=== PATIENT | female | born 1940 | race Caucasian/White ===

== ENCOUNTER 2017-05-24 06:22 | Day surgery (SDC) | payer OTHER ==
[2017-05-18 13:56] VITALS: BMI 17.2
[2017-05-24] MEDS ORDERED: oxyCODONE HCL 10 MG SUSTAINED ACTING TABLET PO STA (06:48)
[2017-05-24] MEDS ORDERED: THROMBIN (BOVINE) 5,000 UNIT VIAL TP ONE (07:13)
[2017-05-24] MEDS ORDERED: methylPREDNISolone ACET (DEPO) 40 MG/1 ML VIAL ONE (07:13)
[2017-05-24] MEDS ORDERED: LIDOCAINE 1%/EPI 1:100000 (20 ML MULTI DOSE VIAL) ONE (07:14)
[2017-05-24] MEDS ORDERED: BUPIVACAINE HCL/PF 2.5 MG/ML - 30 ML VIAL IJ ONE ×2 (07:14→07:41)
[2017-05-24] MEDS ORDERED: BUPIVACAINE HCL/PF 0.5% (5MG/ML) 10 ML VIAL ONE (07:29)
[2017-05-24] MEDS ORDERED: ceFAZolin SODIUM 1 GM VIAL ONE (07:35)
[2017-05-24] MEDS ORDERED: ONDANSETRON 4 MG/2 ML VIAL ONE (07:35)
[2017-05-24] MEDS ORDERED: KETOROLAC TROMETHAMINE 30 MG/1 ML VIAL ONE (07:35)
[2017-05-24] MEDS ORDERED: DEXAMETHASONE SOD PHOSPHATE 4 MG/1 ML VIAL ONE (07:35)
[2017-05-24] MEDS ORDERED: PROPOFOL 20 ML ONE (07:36)
[2017-05-24] MEDS ORDERED: SUCCINYLCHOLINE CHLORIDE 200 MG/10 ML VIAL ONE (07:36)
[2017-05-24] MEDS ORDERED: MIDAZOLAM HCL 2 MG/2 ML SINGLE DOSE VIAL ONE (07:40)
[2017-05-24] MEDS ORDERED: DEXAMETHASONE SOD PHOSPHATE/PF 10 MG/ML SDV ONE (07:40)
[2017-05-24] MEDS ORDERED: GUM MASTIC/STORAX/MSAL/ALCOHOL 1 DRP DROPSBTL MC ONE (07:51)
--- NOTE | 2017-05-24 09:59 | HP ---
History & Physical Update - History History: No Change - Physical Physical: No Change - Assessment Assessment: No Change - Plan Plan: No Change
[2017-05-24] MEDS ORDERED: LACTATED RINGERS SOLUTION 1,000 ML IV SCH (10:00)
[2017-05-24] MEDS ORDERED: ONDANSETRON 4 MG/2 ML VIAL IVPUSH PRN (10:00)
[2017-05-24] MEDS ORDERED: oxyCODONE HCL 5 MG TABLET PO PRN (10:00)
--- NOTE | 2017-05-24 10:03 | SURG ---
Surgery Motocross Racer Note Motocross Racer: Rolando Buck PA-C Date of Service: 05/24/17 Diagnosis: Spinal stenosis with radiculopathy L4/5 Procedure: Bilateral laminectomy L4/5 I was present for the entirety of the operative procedure. For further detail, please refer to operative report. Visit type - Case Type Case Type: Scheduled Admission - New patient This patient is new to me today: Yes Date on this admission: 05/24/17
--- NOTE | 2017-05-24 10:04 | OP ---
Operative Note - Note: Operative Date: 05/24/17 Pre-Operative Diagnosis: L4/5 spinal stenosis w/ radiculopathy Operation: Bilateral L4/5 laminectomy Post-Operative Diagnosis: Same as Pre-op Surgeon: Jacobo Slade Tar Pot Worker: Rolando Buck Anesthesiologist/RISK ADJUSTMENT SPECIALIST: Shahnaz Santoyo (TLIP) Anesthesia: Spinal Estimated Blood Loss (mls): 5 Fluid Volume Replaced (mls): 800 Operative Report Dictated: Yes
[2017-05-24 12:40] VITALS: TEMP 98.1
[2017-05-24 12:44] VITALS: PULSE 84
[2017-05-24 13:14] VITALS: BP 108/57
--- NOTE | 2017-05-24 20:20 | OP ---
DATE OF OPERATION: 05/24/2017 PREOPERATIVE DIAGNOSIS: Spinal stenosis at L4-5. POSTOPERATIVE DIAGNOSIS: Spinal stenosis at L4-5. PROCEDURE PERFORMED: Laminectomy at L4-5. SURGEON: Jacobo Slade MD PT SKILLED: KELVIN Garcia ESTIMATED BLOOD LOSS: 50 mL INTRAVENOUS FLUIDS: Per Anesthesia. ANESTHESIA: Spinal/TLIP. COMPLICATIONS: None. DISPOSITION: Patient brought to the PACU in stable condition. INDICATIONS FOR SURGERY: The patient is a 77-year-old female who has been suffering from pain from her back down her legs. X-rays and MRI were completed which noted that she had spinal stenosis at L4-5. She had gone through an exhaustive course of treatment for this, which included medications, physical therapy as well as injections. Unfortunately, pain continued to persist despite all this. At this point, risks, benefits, and alternatives were discussed, and the patient consented to surgery. DESCRIPTION OF PROCEDURE: Patient was brought to the operating room by the Anesthesia staff. After appropriate patient identification was performed, spinal anesthesia was given. Patient was placed prone onto the Trent frame. A TLIP block was given. Two needles were placed into her back to genny off the L4-5 segment. X-ray was taken to confirm this as correct. [place] were removed, and 10 mL of lidocaine with epinephrine were injected in her back at this time. Her back was prepped and draped in a sterile manner. At this point, a timeout was completed. An incision was made from the top of L4 down to the bottom of L5. Dissection was carried down to the fascia. Fascia was split open at this time, and appropriate retractors were then placed in. A spinal needle was placed onto the L4 lamina. An x-ray was taken to confirm this as correct. The needle was removed, and the microscope was brought in. The interspinous ligament at L4-5 was removed. Portions of the L4-L5 lamina were removed. Portions of the L4-5 facet joints were removed. The flavum was identified. It was removed. A complete decompression was performed such that by the end of the procedure the L5 nerve root appeared to be well decompressed. All bleeding was well controlled at this time. Steroid was placed over the nerve root. FloSeal was placed over that. The fascia was closed with a No. 1 Vicryl suture. Subcutaneous tissues were closed with 2-0 Vicryl suture. Skin was closed with 3-0 Monocryl suture. Dermabond was applied. Steri-Strips were applied. A sterile dressing was applied. Patient was placed supine on the OR bed and brought to the PACU in stable condition. Lawson DIAZ/[id number]
== END 2017-05-24 13:05 | disposition home or self-care (01) ==
LOC: FASU 06:22
PROVIDERS: ATTEND Orthopaedic Surgery Orthopaedic Surgery of the Spine
PROC: 01NB0ZZ Release Lumbar Nerve, Open Approach (ICD-10-PCS; principal; 2017-05-24 08:57)
DX: M48.061 Spinal stenosis, lumbar region without neurogenic claudication (principal)
CPT/HCPCS: 72100-TC; 76000-TC; 82962; 94760